=== PATIENT | male | born 2000 | race Two or more races ===

== ENCOUNTER → 2022-07-24 | Emergency (ER) | payer OTHER ==
[~2022-07-24] VITALS: Ht 177.8 cm; Wt 96.6 kg
[~2022-07-24] MED LIST: EPIPEN0.3 MG/0.1 IJ; ORAPRED ODT30 MG PO
== END | disposition home or self-care (01) ==
LOC: EMR PED 16:36 → ER 16:36 → EMR PED 17:10
DX: L50.9 Urticaria, unspecified (principal); Z91.013 Allergy to seafood